=== PATIENT | male | born 1960 | race Caucasian/White ===

== ENCOUNTER 2023-06-21 05:51 | Emergency (ER) | payer OTHER, MEDICAID ==
[~2023-06-21] VITALS: Ht 170.2 cm; Wt 79.4 kg
[2023-06-21 05:55] VITALS: BP_SYST 165; PULSE 62; RESP 17; TEMP 97.9; O2SAT 97
[2023-06-21 07:02] LABS: COVID19 ANTIGEN SOFIA FIA NEGATIVE (NEGATIVE)
[2023-06-21 07:11] LABS: INFLUENZA TYPE B NEGATIVE (NEGATIVE)
[2023-06-21 07:17] LABS: INFLUENZA TYPE A Positive (NEGATIVE)
[2023-06-21 07:18] VITALS: BP_SYST 129; PULSE 62; TEMP 97.7; O2SAT 94
[2023-06-21] MEDS ORDERED: IBUP-1969 PO (07:21)
[2023-06-21] MEDS ORDERED: OSEL75CA PO (07:21)
[2023-06-21] MEDS ORDERED: BROM118S61 PO (07:21)
== END 2023-06-21 07:30 | disposition home or self-care (01) ==
LOC: SED 05:51
DX: J10.1 Influenza due to other identified influenza virus with other respiratory manifestations (principal); R05.9 Cough, unspecified; R09.81 Nasal congestion; R50.9 Fever, unspecified; Z79.899 Other long term (current) drug therapy; Z20.822 Contact with and (suspected) exposure to COVID-19
CPT/HCPCS: 36415; 71045; 99284